=== PATIENT | female | born 1960 ===

== ENCOUNTER 2018-11-04 00:17 | Emergency (ER) | payer OTHER ==
[2018-11-04 00:25] VITALS: BMI 36.3
[2018-11-04 00:28] VITALS: RESP 18
[2018-11-04] MEDS ORDERED: Naproxen 550 mg Tab PO STA (00:37)
[2018-11-04] MEDS ORDERED: TDAP Vaccine 0.5 mL Syr IM ONE (00:37)
--- NOTE | 2018-11-04 00:44 | ED PDOC ---
Arrival/HPI - General Chief Complaint: Finger,Hand,&Wrist Time Seen by Provider: 11/04/18 00:19 Historian: Patient - History of Present Illness Narrative History of Present Illness (Text): 11/04/18 00:30 58 year old female, whose past medical history includes depression, anxiety, type II diabetes mellitus, diabetic neuropathy, hypertension, and hyperlipidemia, presents to the emergency department nail injury to the right 5th digit. Patient reports her nail of the right 5th finger got caught on the bathroom door and now its nearly detached. Patient's Tetanus is not up to date. Patient otherwise denies any numbness, decrease ROM, back pain, neck pain, or any other complaints/injuries. PMD: Dr. Cruz Symptom Onset: Gradual Symptom Course: Unchanged Activities at Onset: Light Context: Home Past Medical History - Provider Review Nursing Documentation Reviewed: Yes - Infectious Disease Hx of Infectious Diseases: None - Tetanus Immunization Tetanus Immunization: Unknown - Cardiac Hx Hypertension: Yes - Pulmonary Hx Sleep Apnea: Yes - Neurological Hx Neurological Disorder: Yes (neuropathy,restless leg syndrome) Hx Parkinson's Disease: Yes Other/Comment: lower back pain,neuropathy - HEENT Hx HEENT Disorder: No - Renal Hx Renal Disorder: No - Endocrine/Metabolic Hx Diabetes Mellitus Type 2: Yes - Hematological/Oncological Hx Anemia: Yes - Integumentary Hx Dermatological Disorder: No - Musculoskeletal/Rheumatological Hx Arthritis: Yes - Gastrointestinal Hx Gastroesophageal Reflux: Yes - Genitourinary/Gynecological Hx Genitourinary Disorders: No - Psychiatric Hx Anxiety: Yes Hx Bipolar Disorder: Yes Hx Depression: Yes Hx Panic Disorder: Yes Hx Physical Abuse: No Hx Substance Use: No - Past Surgical History Past Surgical History: Non-Contributing - Anesthesia Hx Anesthesia: Yes Hx Anesthesia Reactions: No Hx Malignant Hyperthermia: No - Suicidal Assessment Feels Threatened In Home Enviroment: No Family/Social History - Physician Review Nursing Documentation Reviewed: Yes Family/Social History: No Known Family HX Smoking Status: Current Some Days Smoker Hx Alcohol Use: Yes (1/2 pint/wk.) Hx Substance Use: No Hx Substance Use Treatment: No Allergies/Home Meds Allergies/Adverse Reactions: Allergies No Known Allergies Allergy (Verified 11/04/18 00:28) Home Medications: Home Meds Medication Instructions Recorded Confirmed Alprazolam 2 mg PO TID PRN 01/16/15 11/16/15 Ergocalciferol (Vitamin D2) 50,000 iu PO BID 01/16/15 11/16/15 [Vitamin D2] Ibuprofen 800 mg PO BID PRN 01/16/15 11/16/15 Omeprazole [Prilosec] 20 mg PO DAILY 01/16/15 11/16/15 Albuterol 0.083% [Albuterol 0.083% 1 vial NEB QID 11/16/15 11/16/15 Inhal Kyra (2.5 mg/3 ml) UD] Albuterol HFA [Ventolin HFA 90 1 vial .ROUTE QID 11/16/15 11/16/15 mcg/actuation (8 g)] Calcium Carbonate [Oscal] 500 mg PO BID 11/16/15 11/16/15 DiphenhydrAMINE [Benadryl] 50 mg PO BID 11/16/15 11/16/15 Escitalopram [Lexapro] 10 mg PO DAILY 11/16/15 11/16/15 Fenofibrate [Tricor] 134 mg PO DAILY 11/16/15 11/16/15 Fluticasone/Salmeterol 250/50 1 puff BID 11/16/15 11/16/15 [Advair Diskus 250/50] Ketotifen Fumarate [Zaditor] 1 drop BOTHEYES DAILY 11/16/15 11/16/15 Loratadine [Claritin] 10 mg PO DAILY 11/16/15 11/16/15 Mometasone Furoate [Nasonex] 2 sprays DAILY 11/16/15 11/16/15 [place]-3 Acid Ethyl Esters [Lovaza] 1,000 mg PO BID 11/16/15 11/16/15 Zolpidem [Ambien] 10 mg PO DAILY 11/16/15 11/16/15 oxyCODONE/Acetaminophen [Percocet 5 mg PO QID 11/16/15 11/16/15 5/325 mg Tab] Review of Systems - Physician Review All systems were reviewed & negative as marked: Yes - Review of Systems Musculoskeletal: Other (injury to nail of right 5th finger, no decrease ROM). absent: Back Pain, Neck Pain Neurological: absent: Headache, Dizziness, Other (numbness ) Physical Exam Vital Signs Reviewed: Yes Vital Signs Pulse Resp BP Pulse Ox 11/04/18 00:28 72 18 148/76 97 Temperature: Afebrile Blood Pressure: Normal Pulse: Regular Respiratory Rate: Normal Appearance: Positive for: Well-Appearing, Non-Toxic, Comfortable Pain Distress: None Mental Status: Positive for: Alert and Oriented X 3 - Systems Exam Head: Present: Atraumatic, Normocephalic Pupils: Present: PERRL Extroacular Muscles: Present: EOMI Conjunctiva: Present: Normal Mouth: Present: Moist Mucous Membranes Upper Extremity: Present: Normal ROM, NORMAL PULSES, Neurovascularly Intact, Capillary Refill < 2s, Deformity (+Nail avulsed from the R 5th digit). No: Cyanosis, Edema Neurological: Present: GCS=15, CN II-XII Intact, Speech Normal, Motor Func Grossly Intact, Normal Sensory Function Skin: Present: Warm, Dry, Normal Color. No: Rashes Psychiatric: Present: Alert, Oriented x 3, Normal Insight, Normal Concentration Medical Decision Making ED Course and Treatment: 11/04/18 00:40 Given naprosyn po and keflex po. Wound was cleaned, irrigated with NS, nail was completely removed as it was detached. Clean dressed applied. Advised to follow up with primary care physician or referral provided in 1-2 days without fail. Advised to take medication as prescribed. Return to the emergency room at any time for any new or worsening symptoms. Patient states she fully agrees with and understands discharge instructions. States that she agrees with the plan and disposition. Verbalized and repeated discharge instructions and plan. I have given the patient opportunity to ask any additional questions. - Medication Orders Current Medication Orders: Naproxen (Anaprox Ds) 550 mg PO ONCE STA Stop: 11/04/18 00:38 Tetanus/Reduced Diphtheria/Acell Pertussis (Boostrix Vaccine Inj) 0.5 ml IM .ONCE ONE Stop: 11/04/18 00:38 - PA / POWDER CUTTING OPERATOR / Resident Statement MD/DO has reviewed & agrees with the documentation as recorded. - Scribe Statement The provider has reviewed the documentation as recorded by the Hanh Soares Provider Scribe Attestation: All medical record entries made by the Scribe were at my direction and personall y dictated by me. I have reviewed the chart and agree that the record accurately reflects my personal performance of the history, physical exam, medical decision making, and the department course for this patient. I have also personally directed, reviewed, and agree with the discharge instructions and disposition. Disposition/Present on Arrival - Present on Arrival Any Indicators Present on Arrival: No History of DVT/PE: No History of Uncontrolled Diabetes: No Urinary Catheter: No History of Decub. Ulcer: No History Surgical Site Infection Following: None - Disposition Have Diagnosis and Disposition been Completed?: Yes Diagnosis: Nail avulsion, finger Disposition: HOME/ ROUTINE Disposition Time: 00:45 Patient Plan: Discharge Condition: STABLE Discharge Instructions (ExitCare): Nail Avulsion Additional Instructions: Thank you for letting us take care of you today. You were treated for finger nail avulsion. The emergency medical care you received today was directed at y our acute symptoms. If you were prescribed any medication, please fill it and take as directed. It may take several days for your symptoms to resolve. Return to the Emergency Department if your symptoms worsen, do not improve, or if you have any other problems. Please contact your doctor in 2 days for re-evaluation and follow up / or call one of the physicians/clinics you have been referred to that are listed on the Patient Visit Information form that is included in your discharge packet. Bring any paperwork you were given at discharge with you along with any medications you are taking to your follow up visit. Our treatment cannot replace ongoing medical care by a primary care provider (PCP) outside of the emergency department. Thank you for allowing the [facility] team to be part of your care today. Prescriptions: Cephalexin [Keflex] 500 mg PO Q6 #28 capsule Naproxen 500 mg PO BID #30 tab Referrals: Jessi Garcia MD [Staff Provider] - Follow up with primary Forms: [employer] ([place]), WORK NOTE
[2018-11-04 01:36] VITALS: BP 138/72; PULSE 78; TEMP 98; O2SAT 96
== END 2018-11-04 01:35 | disposition home or self-care (01) ==
LOC: ED 00:17
DX: S61.306A Unspecified open wound of right little finger with damage to nail, initial encounter (principal); W23.0XXA Caught, crushed, jammed, or pinched between moving objects, initial encounter; Y92.009 Unspecified place in unspecified non-institutional (private) residence as the place of occurrence of the external cause; I10 Essential (primary) hypertension; E11.40 Type 2 diabetes mellitus with diabetic neuropathy, unspecified; E78.5 Hyperlipidemia, unspecified; G20 Parkinson's disease; Z23 Encounter for immunization